=== PATIENT | female | born 1985 | race Caucasian/White ===

== ENCOUNTER 2018-02-06 02:50 | Emergency (ER) | payer SELFPAY ==
[2018-02-06 04:21] VITALS: BP 101/62
--- NOTE | 2018-02-06 05:22 | ED ---
Allergic Reaction/Systemic - HPI Summary HPI Summary: The pt is a 32 y.o female who is presenting to the [facility] with a chief complaint of an allergic reaction. The pt states the she was having a bee pollen at dinner and was initially unknown to what she was eating. Upon eating, the pt began to have an allergic reaction. The onset of the reaction was 1800. She reportedly took 30 mg of benadryl at around 2030 to 2100 which alleviated some but not all pain. Currently, the patient has been having N/V as well as abd pain. She reports other allergies as normal "spring allergies." The initial symptoms were described to be hives, that were diffuse and spread throughout her body. Symptoms aggravated and alleviated by nothing. She reports difficulty breathing initially as as well as palpitations. - History of Current Complaint Chief Complaint: EDAllergicReaction Time Seen by Provider: 02/06/18 03:08 Hx Obtained From: Patient Onset/Duration: Sudden Onset Pain Intensity: 0 Pain Scale Used: 0-10 Numeric Aggravating Factor(s): Nothing Alleviating Factor(s): Nothing Associated Signs And Symptoms: Positive: Difficulty Breathing, Other: - palpitations - Allergies/Home Medications Allergies/Adverse Reactions: Allergies Allergy/AdvReac Type Severity Reaction Status Date / Time bee pollen Allergy See Comment Verified 02/06/18 02:57 PMH/Surg Hx/FS Hx/Imm Hx Sensory History: Denies: Hx Legally Blind, Hx Vision Problem, Hx Deafness Opthamlomology History: Denies: Hx Legally Blind EENT History: Denies: Hx Deafness Infectious Disease History: No Infectious Disease History: Denies: Traveled Outside the [place] in Last 30 Days - Family History Family History: FHx reviewed and noncontributory. - Social History Alcohol Use: Occasionally Substance Use Type: Reports: None Smoking Status (MU): Never Smoked Tobacco Review of Systems Constitutional: Negative Eyes: Negative ENT: Negative Positive: Palpitations Positive: Shortness Of Breath - difficulty breathing Positive: Abdominal Pain, Vomiting Genitourinary: Negative Musculoskeletal: Negative Skin: Other - Initial Hives (Diffuse spread throughout) Neurological: Negative Psychological: Normal All Other Systems Reviewed And Are Negative: Yes Physical Exam - Summary Physical Exam Summary: GENERAL: Patient is a well-developed and nourished Female who is lying comfortable in the stretcher. Patient is not in any acute respiratory distress. HEAD AND FACE: Normocephalic EYES: PERRLA, EOMI x 2. EARS: Hearing grossly intact. MOUTH: Oropharynx within normal limits. Midline uvula not swollen NECK: Supple, trachea is midline, no adenopathy, no JVD, no carotid bruit. CHEST: Symmetric, no tenderness at palpation LUNGS: Clear to auscultation bilaterally. No wheezing or crackles. CVS: Regular rate and rhythm, S1 and S2 present, no murmurs or gallops appreciated. ABDOMEN: Soft, non-tender. Bowel sounds are normal. No abdominal abnormal pulsations. EXTREMITIES: Full ROM in all major joints, no edema, no cyanosis or clubbing. NEURO: Alert and oriented x 3. No acute neurological deficits. Speech is normal and follows commands. SKIN: Dry and warm Triage Information Reviewed: Yes Vital Signs On Initial Exam: Initial Vitals Temp Pulse Resp BP Pulse Ox 99 F 70 16 110/78 99 02/06/18 02:53 02/06/18 02:53 02/06/18 02:53 02/06/18 02:53 02/06/18 02:53 Vital Signs Reviewed: Yes Diagnostics - Vital Signs Vital Signs Temp Pulse Resp BP Pulse Ox 02/06/18 04:20 97.9 F 67 16 101/62 98 02/06/18 03:55 70 19 98/60 97 02/06/18 03:25 68 21 111/72 98 02/06/18 03:03 66 18 97 02/06/18 02:55 64 18 110/78 99 02/06/18 02:53 99 F 70 16 110/78 99 - Laboratory Lab Statement: Any lab studies that have been ordered have been reviewed, and results considered in the medical decision making process. Allergic Reaction Course/Dx - Course Course Of Treatment: The pt is a 32 y.o female who is presenting to the [facility] with a chief complaint of allergic reaction. The workup was remarkable for vomiting, and abd pain. The patient did not wish to go through full work up. She refused traetement for allergic reaction. Workup for abd pain was refused as well. Given that we did not get to treat her, she will be signing out against medical advice. The dx will be allergic reaction and abd pain as well as against medical advice. - Diagnoses Provider Diagnoses: Allergic reaction, Abdominal pain, Left against medical advice Discharge - Sign-Out/Discharge Documenting (check all that apply): Patient Departure - Left Against medical advice - Discharge Plan Condition: Stable Disposition: AGAINST MEDICAL ADVICE Patient Education Materials: Anaphylaxis (ED), Acute Abdominal Pain (ED), Allergies (ED), Against Medical Advice (ED), General Allergic Reaction (ED) Referrals: No Primary Care Phys,NOPCP [Primary Care Provider] - Additional Instructions: Follow up with your primary care physician in 1-3 days. RETURN TO THE EMERGENCY DEPARTMENT FOR CHANGING OR WORSENING SYMPTOMS. - Billing Disposition and Condition Condition: STABLE Disposition: Against Medical Advice - Attestation Statements Document Initiated by Scribe: Yes Documenting Scribe: Lionel Alves Provider For Whom Scribe is Documenting (Include Credential): Dr. Nicole Renae Scribe Attestation: Lionel Tejada, maryed for Dr. Nicole Renae on 02/06/18 at 0618. Scribe Documentation Reviewed: Yes Provider Attestation: The documentation as recorded by the Lionel pruett accurately reflects the service I personally performed and the decisions made by Dr. Nicole khan Status of Scribe Document: Viewed
== END 2018-02-06 04:20 | disposition left against medical advice (07) ==
LOC: ED 02:50
DX: T78.40XA Allergy, unspecified, initial encounter (principal); R10.9 Unspecified abdominal pain; R00.2 Palpitations; R06.02 Shortness of breath; R11.10 Vomiting, unspecified; Z53.21 Procedure and treatment not carried out due to patient leaving prior to being seen by health care provider
CPT/HCPCS: 99282